=== PATIENT | female | born 1995 | race Hispanic/Latino ===

== ENCOUNTER 2020-07-09 16:08 | Emergency (ER) | payer OTHER ==
[2020-07-09 16:50] VITALS: BP 141/61
[2020-07-09] MEDS ORDERED: IBUPROFEN 800 MG TAB PO ONE (17:04)
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
== END 2020-07-09 18:55 | disposition home or self-care (01) ==
LOC: EDSEX → ED 16:08
DX: S13.4XXA Sprain of ligaments of cervical spine, initial encounter (principal); S39.012A Strain of muscle, fascia and tendon of lower back, initial encounter; S29.012A Strain of muscle and tendon of back wall of thorax, initial encounter; S00.93XA Contusion of unspecified part of head, initial encounter; Z79.899 Other long term (current) drug therapy; V49.59XA Passenger injured in collision with other motor vehicles in traffic accident, initial encounter; Y93.89 Activity, other specified; Y92.410 Unspecified street and highway as the place of occurrence of the external cause; Y99.8 Other external cause status
CPT/HCPCS: 70450; 71046; 72100; 72125